=== PATIENT | male | born 1940 | race Caucasian/White ===

== ENCOUNTER 2019-11-17 06:04 | Day surgery (SDC) | payer OTHER ==
[~2019-11-17 06:04] MED LIST: ALLOPURINOL100 MG PO; BUSPIRONE HCL10 MG PO; CENTRUM SILVER1 EAC2 PO; COLCHICINE0.6 MG PO; DIAZEPAM10 MG PO; DUREZOL5 ML PO; GAVISCON LIQUI355 ML PO; IBESARTAN PO; METAMUCIL197.2 GM PO; NATURAL LUTEIN20 MG PO; OSTERA TABLET1 EACH PO; PRILOSEC20 MG PO; PROBIOTIC1 EAC1 PO; REFRESH15 ML; TOPROL XL100 M1 PO; XARELTO10 MG PO; ZANTAC150 MG; ZOCOR40 MG PO; [UNRECOGNIZED DRUG - OTHER]; [UNRECOGNIZED DRUG - OTHER]
== END 2019-11-17 12:00 | disposition home or self-care (01) ==
LOC: AMB-ENDOS 06:04 → ADM 14:15
DX: D12.2 Benign neoplasm of ascending colon (principal); D12.3 Benign neoplasm of transverse colon; D12.4 Benign neoplasm of descending colon; D12.8 Benign neoplasm of rectum

== ENCOUNTER 2021-07-09 10:20 | Emergency (ER) | payer OTHER ==
[~2021-07-09] VITALS: Ht 170.2 cm; Wt 78.5 kg
[2021-07-09] MEDS ORDERED: DEXILANT30 MG (10:41)
[2021-07-09] MEDS ORDERED: REPATHA SU140 MG/1 M (10:43)
== END 2021-07-09 14:23 | disposition home or self-care (01) ==
LOC: ER 10:20
DX: S00.83XA Contusion of other part of head, initial encounter (principal); S40.011A Contusion of right shoulder, initial encounter; S50.01XA Contusion of right elbow, initial encounter; S20.211A Contusion of right front wall of thorax, initial encounter; W18.09XA Striking against other object with subsequent fall, initial encounter; Y93.89 Activity, other specified; Y92.232 Corridor of hospital as the place of occurrence of the external cause; Y99.8 Other external cause status